=== PATIENT | female | born 1940 | race Caucasian/White ===

== ENCOUNTER 2020-09-23 09:55 | Observation (INO) ==
[2020-09-23] MEDS ORDERED: SODIUM CHLORIDE 0.9% 500 ML IV STA (10:20)
[2020-09-23 10:41] LABS: Basophils % 0.5 % (0.0-0.8); Eosinophils # 0.1 10*3/uL (0.0-0.87); Eosinophils % 0.6 % (0.00-10.9); Hematocrit 29.4 VOL% (35.7-47.0); Hemoglobin 9.3 GM/DL (12.0-16.0); Immature Granulocytes % 0.4 %; Immature Granulocytes Absolute 0.03 #; Lymphocytes # 1.3 10*3/uL (1.4-4.0); Lymphocytes % 16.3 % (21.3-54.2); Mean Corpuscular HGB Conc 31.6 GM/DL (32-36); Mean Corpuscular Volume 96.7 FL (87-102); Mean Platelet Volume 10.9 FL (9.6-12.0); Monocytes % 8.2 % (1.7-12.7); Platelet Count 181 T/CUMM (130-400); Red Blood Count 3.04 MC/CUMM (3.8-5.5); Red Cell Distribution Width 14.6 % (9.3-17.3)
[2020-09-23 11:01] LABS: Albumin 3.2 G/DL (3.4-5.0); Bilirubin,Total 0.5 MG/DL (0.2-1.0); Calcium 8.9 MG/DL (8.5-10.1); Osmolality,Calculated 286.7 MOS/KG (273-304); Total Protein 7.4 G/DL (6.4-8.3)
[2020-09-23 11:05] LABS: Hypochromasia 1+
[2020-09-23 11:06] LABS: Microcytosis Slight
[2020-09-23 11:15] LABS: PT Patient Result 11.1 SECS (9.8-11.9)
[2020-09-23] MEDS ORDERED: cefTRIAXone 1,000 MG in SODIUM CHLORIDE 0.9% 100 ML IV STA (11:59)
[2020-09-23] MEDS ORDERED: ONDANSETRON 4 MG/2 ML VIAL IV PRN (12:22)
[2020-09-23] MEDS ORDERED: ACETAMINOPHEN 325 MG TABLET PO PRN (12:22)
[2020-09-23] MEDS ORDERED: DEXTROSE 50% 25 GM/50 ML VIAL IV PRN (12:22)
[2020-09-23] MEDS ORDERED: GLUCAGON 1 MG VIAL IM PRN (12:22)
[2020-09-23] MEDS: SODIUM CHLORIDE 0.9% 1,000 ML IV SCH (13:10)
[2020-09-23] MEDS: GABAPENTIN 100 MG CAPSULE PO SCH ×2 (16:33→21:13)
[2020-09-23] MEDS: APIXABAN 2.5 MG TABLET PO SCH (16:33)
[2020-09-23] MEDS: traMADol 50 MG TABLET PO SCH ×2 (16:34→21:17)
[2020-09-23] MEDS: MIRTAZAPINE 15 MG TABLET PO SCH (21:12)
[2020-09-23] MEDS: DOCUSATE SODIUM 100 MG CAPSULE PO SCH (21:12)
[2020-09-23] MEDS: ATORVASTATIN 40 MG TABLET PO SCH (21:13)
[2020-09-23] MEDS: INSULIN GLARGINE 100 UNIT/ML SUBCUT SCH (21:21)
[2020-09-24 06:31] LABS: Basophils % 0.5 % (0.0-0.8); Eosinophils # 0.2 10*3/uL (0.0-0.87); Eosinophils % 2.3 % (0.00-10.9); Hematocrit 31.4 VOL% (35.7-47.0); Hemoglobin 9.7 GM/DL (12.0-16.0); Immature Granulocytes % 0.3 %; Immature Granulocytes Absolute 0.02 #; Lymphocytes # 2.6 10*3/uL (1.4-4.0); Lymphocytes % 38.6 % (21.3-54.2); Mean Corpuscular HGB Conc 30.9 GM/DL (32-36); Mean Corpuscular Volume 96.9 FL (87-102); Mean Platelet Volume 9.9 FL (9.6-12.0); Monocytes % 10.3 % (1.7-12.7); Platelet Count 273 T/CUMM (130-400); Red Blood Count 3.24 MC/CUMM (3.8-5.5); Red Cell Distribution Width 14.4 % (9.3-17.3); White Blood Count 6.6 T/CUMM (4-12)
[2020-09-24] MEDS: traMADol 50 MG TABLET PO SCH ×3 (07:11→22:36)
[2020-09-24 07:17] LABS: Albumin 2.6 G/DL (3.4-5.0); Bilirubin,Total 0.5 MG/DL (0.2-1.0); Calcium 8.7 MG/DL (8.5-10.1); Potassium 3.6 MMOL/L (3.5-5.1); Total Protein 6.2 G/DL (6.4-8.3)
[2020-09-24] MEDS: SODIUM CHLORIDE 0.9% 1,000 ML IV SCH ×2 (08:46→23:20)
[2020-09-24] MEDS: PANTOPRAZOLE 40 MG TABLET PO SCH (08:46)
[2020-09-24] MEDS: DOCUSATE SODIUM 100 MG CAPSULE PO SCH ×2 (08:47→22:35)
[2020-09-24] MEDS: AMIODARONE 200 MG TABLET PO SCH (08:47)
[2020-09-24] MEDS: APIXABAN 2.5 MG TABLET PO SCH ×2 (08:47→16:31)
[2020-09-24] MEDS: cefTRIAXone 500 MG in SYRINGE 1 EACH IV SCH (09:29)
[2020-09-24 14:25] LABS: Bilirubin,Urine Negative (Negative); Blood, Urine Small mg/dL (Negative); Glucose,Urine (UA) Negative (Negative); Ketones,Urine Negative (Negative); Mucus,Urine Occasional /LPF (Occasional); Nitrite,Urine Negative (Negative); Protein,Urine Negative; RBC,Urine <1 /HPF (0-4); Urine Appearance CLEAR (Clear); Urine Color Yellow (Yellow); Urine Urobilinogen < 2.0 EU/DL (0.2-1.0); WBC,Urine 4 /HPF (0-6)
[2020-09-24] MEDS: GABAPENTIN 100 MG CAPSULE PO SCH ×2 (16:32→22:35)
[2020-09-24] MEDS: ATORVASTATIN 40 MG TABLET PO SCH (22:36)
[2020-09-24] MEDS: MIRTAZAPINE 15 MG TABLET PO SCH (22:36)
[2020-09-24] MEDS: INSULIN GLARGINE 100 UNIT/ML SUBCUT SCH (22:37)
[2020-09-25 06:09] LABS: Basophils % 0.5 % (0.0-0.8); Eosinophils # 0.1 10*3/uL (0.0-0.87); Eosinophils % 1.9 % (0.00-10.9); Hemoglobin 9.4 GM/DL (12.0-16.0); Immature Granulocytes % 0.3 %; Immature Granulocytes Absolute 0.02 #; Lymphocytes # 2.3 10*3/uL (1.4-4.0); Lymphocytes % 40.2 % (21.3-54.2); Mean Corpuscular HGB Conc 31.3 GM/DL (32-36); Mean Corpuscular Volume 97.4 FL (87-102); Mean Platelet Volume 9.6 FL (9.6-12.0); Monocytes % 11.3 % (1.7-12.7); Neutrophils % 45.8 % (38.7-73.9); Platelet Count 245 T/CUMM (130-400); Red Blood Count 3.08 MC/CUMM (3.8-5.5); Red Cell Distribution Width 14.5 % (9.3-17.3); White Blood Count 5.8 T/CUMM (4-12)
[2020-09-25 06:25] LABS: Calcium 8.6 MG/DL (8.5-10.1); Osmolality,Calculated 280.1 MOS/KG (273-304); Potassium 3.8 MMOL/L (3.5-5.1)
[2020-09-25] MEDS: traMADol 50 MG TABLET PO SCH ×3 (07:09→21:43)
[2020-09-25 08:08] LABS: Band Neutrophils 2 % (0-10); Eosinophils 1 % (0-10); Total Cells Counted 100
[2020-09-25 08:09] LABS: Anisocytosis 1+; Lymphocytes 41 % (20-55); Macrocytosis 1+; Platelet Estimate Normal; Reactive Lymphocytes 1+; Segmented Neutrophils 45 % (50-85)
[2020-09-25] MEDS: DOCUSATE SODIUM 100 MG CAPSULE PO SCH ×2 (09:19→21:44)
[2020-09-25] MEDS: PANTOPRAZOLE 40 MG TABLET PO SCH (09:19)
[2020-09-25] MEDS: APIXABAN 2.5 MG TABLET PO SCH ×2 (09:19→16:12)
[2020-09-25] MEDS: AMIODARONE 200 MG TABLET PO SCH (09:19)
[2020-09-25] MEDS: cefTRIAXone 500 MG in SYRINGE 1 EACH IV SCH (09:40)
[2020-09-25] MEDS ORDERED: MAGNESIUM SULF RIDER 2 GM in PREMIX 1 EACH IV ONE (11:50)
[2020-09-25] MEDS: GABAPENTIN 100 MG CAPSULE PO SCH ×2 (16:02→21:44)
[2020-09-25] MEDS: SODIUM CHLORIDE 0.9% 1,000 ML IV SCH (16:23)
[2020-09-25] MEDS: MIRTAZAPINE 15 MG TABLET PO SCH (21:43)
[2020-09-25] MEDS: ATORVASTATIN 40 MG TABLET PO SCH (21:44)
[2020-09-26 05:06] LABS: Calcium 8.6 MG/DL (8.5-10.1); Osmolality,Calculated 280.3 MOS/KG (273-304); Potassium 3.9 MMOL/L (3.5-5.1)
[2020-09-26] MEDS: traMADol 50 MG TABLET PO SCH ×3 (06:21→21:59)
[2020-09-26] MEDS: DOCUSATE SODIUM 100 MG CAPSULE PO SCH ×2 (09:04→21:58)
[2020-09-26] MEDS: APIXABAN 2.5 MG TABLET PO SCH (09:04)
[2020-09-26] MEDS: PANTOPRAZOLE 40 MG TABLET PO SCH (09:04)
[2020-09-26] MEDS: AMIODARONE 200 MG TABLET PO SCH (09:04)
[2020-09-26] MEDS: cefTRIAXone 500 MG in SYRINGE 1 EACH IV SCH (09:07)
[2020-09-26] MEDS: QUEtiapine 25 MG TABLET PO SCH ×2 (11:00→21:58)
[2020-09-26] MEDS: MIRTAZAPINE 15 MG TABLET PO SCH (21:59)
[2020-09-26] MEDS: ATORVASTATIN 40 MG TABLET PO SCH (21:59)
[2020-09-26] MEDS: GABAPENTIN 100 MG CAPSULE PO SCH (22:31)
[2020-09-27] MEDS: traMADol 50 MG TABLET PO SCH (05:55)
[2020-09-27 08:00] VITALS: BP 100/56
[2020-09-27] MEDS ORDERED: CEFUROXIME 250 MG TABLET PO ONE (09:00)
[2020-09-27] MEDS: APIXABAN 2.5 MG TABLET PO SCH ×2 (09:02→09:03)
[2020-09-27] MEDS: PANTOPRAZOLE 40 MG TABLET PO SCH (09:02)
[2020-09-27] MEDS: QUEtiapine 25 MG TABLET PO SCH (09:03)
[2020-09-27] MEDS: AMIODARONE 200 MG TABLET PO SCH (09:03)
[2020-09-27] MEDS: DOCUSATE SODIUM 100 MG CAPSULE PO SCH (09:03)
[2020-09-27] MEDS: cefTRIAXone 500 MG in SYRINGE 1 EACH IV SCH (09:03)
== END 2020-09-27 11:19 ==
LOC: EDBD → EDUNIT# → N.ED 09:55 → N.EDINP 09:55 → N.3E 14:22
PROVIDERS: ADMIT Internal Medicine; ATTEND Internal Medicine

== ENCOUNTER 2020-11-03 12:54 | Observation (INO) ==
[2020-11-03] MEDS ORDERED: NALOXONE 0.4 MG/ML VIAL ONE (13:29)
[2020-11-03] MEDS ORDERED: NALOXONE 0.4 MG/ML VIAL IV STA (13:38)
[2020-11-03 13:49] LABS: Basophils % 0.2 % (0.0-0.8); Eosinophils # 0.1 10*3/uL (0.0-0.87); Eosinophils % 1.7 % (0.00-10.9); Hematocrit 29.6 VOL% (35.7-47.0); Hemoglobin 9.2 GM/DL (12.0-16.0); Immature Granulocytes % 0.4 %; Immature Granulocytes Absolute 0.02 #; Lymphocytes # 0.7 10*3/uL (1.4-4.0); Lymphocytes % 15.9 % (21.3-54.2); Mean Corpuscular HGB Conc 31.1 GM/DL (32-36); Mean Corpuscular Volume 97.4 FL (87-102); Mean Platelet Volume 10.3 FL (9.6-12.0); Monocytes % 7.2 % (1.7-12.7); Neutrophils % 74.6 % (38.7-73.9); Platelet Count 153 T/CUMM (130-400); Red Blood Count 3.04 MC/CUMM (3.8-5.5); Red Cell Distribution Width 14.8 % (9.3-17.3); White Blood Count 4.6 T/CUMM (4-12)
[2020-11-03 14:01] LABS: Albumin 2.9 G/DL (3.4-5.0); Bilirubin,Total 0.4 MG/DL (0.2-1.0); Calcium 8.3 MG/DL (8.5-10.1); Potassium 3.8 MMOL/L (3.5-5.1); Total Protein 6.4 G/DL (6.4-8.2)
[2020-11-03] MEDS ORDERED: DEXTROSE 5% 1,000 ML IV SCH (14:45)
[2020-11-03 15:05] LABS: Bilirubin,Urine Negative (Negative); Blood, Urine Negative (Negative); Glucose,Urine (UA) Negative (Negative); Ketones,Urine Negative (Negative); Nitrite,Urine Negative (Negative); Protein,Urine Negative; RBC,Urine 1 /HPF (0-4); Squamous Epithelial Cell,Urine Occasional /HPF (0-10); Urine Appearance CLEAR (Clear); Urine Color Yellow (Yellow); Urine Specific Gravity 1.004 (1.001-1.035); Urine Urobilinogen < 2.0 EU/DL (0.2-1.0); WBC,Urine 4 /HPF (0-6)
[2020-11-03 15:07] LABS: Platelet Estimate Decreased
[2020-11-03 15:07] LABS: Barbiturates Screen,Urine Negative (Negative); Benzodiazepines Screen,Urine Negative (Negative); Cannabinoid Screen,Urine Negative (Negative); Opiate Screen,Urine Negative (Negative); Phencyclidine Screen,Urine Negative (Negative)
[2020-11-03] MEDS ORDERED: ACETAMINOPHEN 325 MG TABLET PO PRN (15:35)
[2020-11-03] MEDS ORDERED: ONDANSETRON 4 MG/2 ML VIAL IV PRN (15:35)
[2020-11-03] MEDS: DEXTROSE 5% NACL 0.45% 1,000 ML IV SCH (16:02)
[2020-11-03] MEDS: DOCUSATE SODIUM 100 MG CAPSULE PO SCH (22:07)
[2020-11-03] MEDS ORDERED: GLUCAGON 1 MG VIAL IM PRN (23:27)
[2020-11-03] MEDS ORDERED: MIRTAZAPINE 15 MG TABLET PO SCH (23:30)
[2020-11-04] MEDS: QUEtiapine 25 MG TABLET PO SCH ×2 (00:45→09:06)
[2020-11-04] MEDS: DEXTROSE 5% NACL 0.45% 1,000 ML IV SCH ×2 (00:46→09:06)
[2020-11-04 06:02] LABS: Basophils % 0.4 % (0.0-0.8); Eosinophils # 0.2 10*3/uL (0.0-0.87); Eosinophils % 2.9 % (0.00-10.9); Hemoglobin 9.4 GM/DL (12.0-16.0); Immature Granulocytes % 0.4 %; Immature Granulocytes Absolute 0.02 #; Lymphocytes # 1.7 10*3/uL (1.4-4.0); Lymphocytes % 32.4 % (21.3-54.2); Mean Corpuscular HGB Conc 32.4 GM/DL (32-36); Mean Platelet Volume 9.6 FL (9.6-12.0); Monocytes % 8.1 % (1.7-12.7); Neutrophils % 55.8 % (38.7-73.9); Platelet Count 236 T/CUMM (130-400); Red Blood Count 3.02 MC/CUMM (3.8-5.5); Red Cell Distribution Width 14.8 % (9.3-17.3); White Blood Count 5.2 T/CUMM (4-12)
[2020-11-04 06:15] LABS: Albumin 2.8 G/DL (3.4-5.0); Osmolality,Calculated 284.3 MOS/KG (273-304); Potassium 3.7 MMOL/L (3.5-5.1); Total Protein 6.2 G/DL (6.4-8.2)
[2020-11-04] MEDS: traMADol 50 MG TABLET PO SCH ×3 (06:37→14:39)
[2020-11-04] MEDS ORDERED: APIXABAN 2.5 MG TABLET PO SCH (08:00)
[2020-11-04] MEDS ORDERED: MEMANTINE 5 MG TABLET PO SCH (08:00)
[2020-11-04] MEDS ORDERED: DOCUSATE SODIUM 100 MG CAPSULE PO SCH (08:00)
[2020-11-04] MEDS ORDERED: FAMOTIDINE 20 MG TABLET PO SCH (09:00)
[2020-11-04] MEDS ORDERED: AMIODARONE 200 MG TABLET PO SCH (09:00)
[2020-11-04] MEDS ORDERED: PANTOPRAZOLE 40 MG TABLET PO SCH (09:00)
[2020-11-04] MEDS: DOCUSATE SODIUM 100 MG CAPSULE PO SCH (09:06)
[2020-11-04] MEDS ORDERED: DEXTROSE 50% 25 GM/50 ML VIAL IV PRN (09:13)
[2020-11-04] MEDS ORDERED: GLUCAGON 1 MG VIAL IM PRN (09:13)
[2020-11-04] MEDS ORDERED: GABAPENTIN 100 MG CAPSULE PO SCH (16:00)
[2020-11-04 16:14] VITALS: BP 161/53
== END 2020-11-04 17:30 ==
LOC: EDBD → EDUNIT# → N.ED 12:54 → INTOOBSV 15:33 → N.EDINP 15:33 → N.5E 17:57
PROVIDERS: ADMIT Internal Medicine; ATTEND Internal Medicine